=== PATIENT | female | born 1995 | race Caucasian/White ===

== ENCOUNTER 2022-10-01 23:10 | Emergency (ER) | payer BC, SELFPAY ==
[2022-10-01 23:25] VITALS: BP 113/79; PULSE 74; RESP 20; TEMP 37; O2SAT 98
[2022-10-02 02:38] VITALS: BP 100/71; PULSE 73
[2022-10-02 02:39] VITALS: BP 111/82; PULSE 77
[2022-10-02 02:40] VITALS: BP 108/90; PULSE 103
--- NOTE | 2022-10-02 02:43 | ECG_ITS ---
Measurements Intervals [place] Rate: 58 P: 64 MA: 142 QRS: 73 QRSD: 94 T: 52 QT: 417 QTc: 412 Interpretive Statements SINUS BRADYCARDIA EARLY REPOLARIZATION ABNORMALITY, CONSIDER NORMAL VARIANT NORMAL ECG NO PREVIOUS ECG AVAILABLE FOR COMPARISON Electronically Signed On 10-03-2022 16:12:30 CDT by Manuelito Good M.D.
[2022-10-02] MEDS: SODIUM CHLORIDE 0.9% IV 1,000 ML 999 ML IV CONT (02:58)
[2022-10-02 03:05] LABS: Basophils Absolute Auto 0.1 K/mm3 (0.0-0.1); Basophils Percent Auto 2.2 % (0.2-1.2); Eosinophils Absolute Auto 0.1 K/mm3 (0-0.3); Eosinophils Percent Auto 1.2 % (0-4.4); Hematocrit 40.4 % (37.0-47.0); Immature Granulocyte Absolute 0.01 K/mm3 (0.00-0.031); Immature Granulocyte Percent A 0.2 % (0-0.5); Lymphocytes Absolute Auto 2.61 K/mm3 (0.9-3.2); Lymphocytes Percent Auto 43.4 % (18.3-44.2); Mean Corpuscular HGB Conc 34.7 g/dl (32-36); Mean Corpuscular Hemoglobin 30.2 pg (26-34); Mean Corpuscular Volume 87.3 fl (80-100); Mean Platelet Volume 9.3 fl (7.4-10.4); Monocytes Absolute Auto 0.5 K/mm3 (0.1-0.6); Neutrophils Absolute Auto 2.7 K/mm3 (1.3-6.7); Platelet Count Result 276 k/mm3 (150-375); Red Blood Count 4.63 M/mm3 (4.2-5.4); Red Cell Distribution Width 12.6 % (11.5-14.5)
[2022-10-02 03:06] LABS: Appearance Urine Clear (Clear); Bilirubin Urine Negative (Negative); Blood Urine Negative (Negative); Color Urine Yellow (Yellow); Glucose Urine UA Negative (Negative); Ketones Urine Negative (Negative); Leukocyte Esterase Ur Negative LEU/UL (Negative); Nitrate Urine Negative (Negative); Protein Urine Negative (Negative); Specific Grav Ur 1.003 (1.001-1.035); Urobilinogen Urine 0.2 mg/dL (<2.0)
[2022-10-02 03:09] LABS: Add Urine Microscopic? NO
[2022-10-02 03:17] LABS: Alanine Aminotransferase 17 U/L (6-35); Albumin Level 4.8 g/dL (3.5-5.1); Alkaline Phosphatase 55 U/L (38-126); Anion Gap 8 mmol/L (8-16); Aspartate Amino Transferase 25 U/L (14-36); Bilirubin,Total 0.5 mg/dL (0.2-1.3); Blood Urea Nitrogen 5 mg/dL (7-17); Calcium 9.2 mg/dL (8.4-10.2); Carbon Dioxide 31 mmol/L (22-30); Chloride 105 mmol/L (98-107); Estimated CRCL calculation 116 ml/min; Estimated Glomerular Filt Rate > 60; Glucose 93 mg/dL (65-110); Magnesium 1.9 mg/dL (1.6-2.3); Potassium 3.7 mmol/L (3.4-5.0); Sodium 144 mmol/L (137-145)
--- NOTE | 2022-10-02 04:05 | ED.GENADULT ---
HPI - General Adult General Chief complaint: Fall Stated complaint: fall Time Seen by Provider: 10/02/22 02:37 History of Present Illness HPI narrative: Patient 26-year-old female who presents the emergency department with chief complaint of head injury. Patient reports that she has had issues before with problems with her oral intake and reports that she has had episodes where she stands up and gets lightheaded. The patient reports this evening she had an episode where she stood up got lightheaded fell to the ground and woke up on the ground. The patient reports that now she just feels a little weak and rundown patient denies chest pain denies shortness of breath denies any injuries. Review of Systems Review of Systems: A 10 system review of systems was completed on the patient and is negative except for what is stated in the HPI. Nursing and ancillary documentation was reviewed. Exam Narrative: GENERAL: Well-appearing, well-nourished, and in no acute distress. HEAD: Normocephalic, atraumatic. EYES: PERRLA and EOMI. ENT: Nares clear, no rhinorrhea or epistaxis. Mucous membranes moist. NECK: Supple. CHEST: Clear to auscultation. No respiratory distress. HEART: Regular rate and rhythm. No murmur heard. Normal peripheral pulses. ABDOMEN: Soft, nontender, nondistended, normal active bowel sounds. EXTREMITIES: Normal range of motion. No edema. SKIN: Warm, dry, no rash. NEURO: No focal deficits. Alert and oriented x3. PSYCH: Normal mood and affect. Course Course Emergency Course: Differential diagnosis includes orthostatic hypotension, POTS syndrome, dysrhythmia, dehydration, electrolyte abnormality Patient is currently GCS 15 alert oriented and showing no signs of altered mental status. At this time CT head does not required EKG shows sinus bradycardia rate of [address] elevation or ST depression. Laboratory studies were obtained which showed a CBC with a white count of 6 hemoglobin of 14 and platelet count was 276. CMP showed a BUN of 5 and a creatinine 0.6 potassium was 3.7 LFTs are within normal limits magnesium was 1.9. Urinalysis was negative Patient received a liter of normal saline and is feeling better at this time. Vital Signs Vital signs: Vital Signs Temperature 37.0 C 10/01/22 23:25 Pulse Rate 74 10/01/22 23:25 Respiratory Rate 20 10/01/22 23:25 Blood Pressure 113/79 10/01/22 23:25 Pulse Oximetry 98 10/01/22 23:25 Oxygen Delivery Room Air 10/01/22 23:25 Temperature 37.0 C 10/01/22 23:25 Pulse Rate 103 H 10/02/22 02:40 Respiratory Rate 20 10/01/22 23:25 Blood Pressure 108/90 10/02/22 02:40 Pulse Oximetry 98 10/01/22 23:25 Oxygen Delivery Room Air 10/01/22 23:25 Medical Decision Making Vital Signs Vital Signs: Vital Signs Temperature 37.0 C 10/01/22 23:25 Pulse Rate 74 10/01/22 23:25 Respiratory Rate 20 10/01/22 23:25 Blood Pressure 113/79 10/01/22 23:25 Pulse Oximetry 98 10/01/22 23:25 Oxygen Delivery Room Air 10/01/22 23:25 Temperature 37.0 C 10/01/22 23:25 Pulse Rate 103 H 10/02/22 02:40 Respiratory Rate 20 10/01/22 23:25 Blood Pressure 108/90 10/02/22 02:40 Pulse Oximetry 98 10/01/22 23:25 Oxygen Delivery Room Air 10/01/22 23:25 Lab Data 10/02/22 02:59 10/02/22 02:59 Labs: Lab Results 10/02/22 10/02/22 10/02/22 Range/Units 02:59 02:59 02:59 WBC 6.0 (4.5-10.0) K/mm3 RBC 4.63 (4.2-5.4) M/mm3 Hgb 14.0 (12.0-15.0) g/dL Hct 40.4 (37.0-47.0) % MCV 87.3 (80-100) fl MCH 30.2 (26-34) pg MCHC 34.7 (32-36) g/dl RDW 12.6 (11.5-14.5) % Plt Count 276 (150-375) k/mm3 MPV 9.3 (7.4-10.4) fl Immature Gran % (Auto) 0.2 (0-0.5) % Neut % (Auto) 45.0 L (45.5-73.1) % Lymph % (Auto) 43.4 (18.3-44.2) % [place] % (Auto) 8.0 (2.6-8.5) % Eos % (Auto) 1.2 (0-4.4) % Baso % (Auto) 2.2 H (0.2-1.2) % Lymph # (Auto
[2022-10-02 04:14] VITALS: BP 99/59; PULSE 77; RESP 18; TEMP 36.6; O2SAT 99
== END 2022-10-02 04:15 | disposition home or self-care (01) ==
PROVIDERS: Emergency Provider Emergency Medicine; PCP Nurse Practitioner
DX: I95.1 Orthostatic hypotension (principal); S09.90XA Unspecified injury of head, initial encounter; R00.1 Bradycardia, unspecified; W18.39XA Other fall on same level, initial encounter
CPT/HCPCS: 36415; 80053; 81003; 81025; 83735; 85025; 93005; 96360; 99283; J7030

== ENCOUNTER → 2022-11-14 08:29 | Outpatient (CLI) | payer BC, SELFPAY ==
--- NOTE | ~2022-11-14 | XR_ITS ---
Lumbosacral Spine: AP and lateral views Clinical History: Pain Findings: The normal lordotic curve is maintained. The vertebral bodies and posterior elements are i ntact. The intervertebral disc spaces are preserved. The sacroiliac joints are normally outlined. Impression: No significant abnormality. Reviewed, dictated and finalized at [facility]. Impression: No significant abnormality.
== END ==
PROVIDERS: PCP Nurse Practitioner; Visit Provider Nurse Practitioner
DX: M54.50 Low back pain, unspecified (principal); G89.29 Other chronic pain
CPT/HCPCS: 72100

== ENCOUNTER 2022-11-18 07:47 | Emergency (ER) | payer BC, SELFPAY ==
[2022-11-18] VITALS (20 sets, daily range): BP systolic 80–115; BP diastolic 51–80; PULSE 104–122; RESP 20; TEMP 36.6; O2SAT 87–100
--- NOTE | ~2022-11-18 | US_ITS ---
EXAMINATION: US pelvic complete DATE: 11/18/2022 11:15 INDICATION: Left ovarian cyst. TECHNIQUE: Multiple transabdominal sonographic images of the pelvis were obtained. COMPARISON: CT abdomen and pelvis 11/18/2022 FINDINGS: The uterus measures 8.8 x 5.0 x 3.6 cm. There is no free fluid in the pelvis. The endometrial complex measures 7 mm in thickness. The right ovary measures 2.7 x 1.9 x 1.8 cm. The left ovary measures 5.4 x 4.2 x 4.3 cm. There is a 4.6 cm mass in left ovary that is anechoic, hypoechoic, and hyperechoic w ithout internal vascular flow, likely a hemorrhagic cyst. There is normal vascular flow in the ovarie s. IMPRESSION: 1. 4.6 cm hemorrhagic cyst in left ovary. Reviewed, dictated and finalized at location [facility].
--- NOTE | ~2022-11-18 | CT_ITS ---
CT of the Abdomen and Pelvis: Indication: Abdominal pain Technique: 2.5 mm axial scans were obtained through the abdomen and pelvis following intravenous adm inistration of 100 cc of Omnipaque 350. Dose reduction technique was used on this scan by utilizing a utomated exposure control and iterative reconstruction technique. The dose-length product (DLP) was 3 10.16 mGy-cm. Findings: Scans through the lung bases are unremarkable. The liver, spleen, pancreas, gallbladder, adrenals and kidneys are within normal limits. No evidence of aortic aneurysm. No lymphadenopathy. No bowel obstruction or bowel wall thickening. Moderate amount of stool is present, suggestive of con stipation. Images through the pelvis were performed. Urinary bladder is unremarkable. 3.7 cm left ovarian cyst p resent. There is trace ascites in the pelvis. Impression: 3.7 cm left ovarian cyst. Consider ultrasound to assess for torsion as indicated. Trace ascites, nonspecific. Moderate stool. Correlate for constipation. Reviewed, dictated and finalized at location . Impression: 3.7 cm left ovarian cyst. Consider ultrasound to assess for torsion as indicate d. Trace ascites, nonspecific. Moderate stool. Correlate for constipation.
[2022-11-18] MEDS: SODIUM CHLORIDE 0.9% IV 1,000 ML 999 ML IV CONT ×2 (08:23→09:28)
[2022-11-18] MEDS: ONDANSETRON INJ 4 MG/2 ML VIAL IV PUSH (08:23)
[2022-11-18 08:30] LABS: Basophils Absolute Auto 0.1 K/mm3 (0.0-0.1); Basophils Percent Auto 0.5 % (0.2-1.2); Eosinophils Absolute Auto 0.1 K/mm3 (0-0.3); Eosinophils Percent Auto 0.7 % (0-4.4); Hematocrit 42.5 % (37.0-47.0); Hemoglobin 15.7 g/dL (12.0-15.0); Immature Granulocyte Absolute 0.05 K/mm3 (0.00-0.031); Immature Granulocyte Percent A 0.4 % (0-0.5); Lymphocytes Absolute Auto 0.36 K/mm3 (0.9-3.2); Lymphocytes Percent Auto 2.8 % (18.3-44.2); Mean Corpuscular HGB Conc 36.9 g/dl (32-36); Mean Corpuscular Hemoglobin 30.8 pg (26-34); Mean Corpuscular Volume 83.3 fl (80-100); Mean Platelet Volume 10.4 fl (7.4-10.4); Monocytes Absolute Auto 0.7 K/mm3 (0.1-0.6); Monocytes Percent Auto 5.3 % (2.6-8.5); Neutrophils Absolute Auto 11.7 K/mm3 (1.3-6.7); Neutrophils Percent Auto 90.3 % (45.5-73.1); Platelet Count Result 223 k/mm3 (150-375); Red Cell Distribution Width 12.3 % (11.5-14.5); White Blood Count 12.9 K/mm3 (4.5-10.0)
[2022-11-18 08:34] LABS: Appearance Urine Cloudy (Clear); Bacteria Urine 1+ /hpf; Bilirubin Urine 1+ (Negative); Blood Urine Negative (Negative); Color Urine Dark Yellow (Yellow); Glucose Urine UA Negative (Negative); Ketones Urine 2+ mg/dL (Negative); Leukocyte Esterase Ur Trace LEU/UL (Negative); Nitrate Urine Negative (Negative); Non Pathogenic Casts 0-2; Protein Urine Trace mg/dL (Negative); RBC Urine 0-2 /hpf (0-2); Specific Grav Ur 1.025 (1.001-1.035); Squamous Epithelial Cell Urine Few /hpf (Few); WBC Urine 0-5 /hpf; pH Urine 7.5 (5.0-9.0)
[2022-11-18 08:38] LABS: Add Urine Microscopic? YES
--- NOTE | 2022-11-18 08:38 | ED.NAVMDI ---
HPI - Nausea/Vomiting/Diarrhea General Chief complaint: Nausea/Vomiting/Diarrhea Stated complaint: N/V SINCE MIDNIGHT Time Seen by Provider: 11/18/22 07:56 Source: patient, family () and RN notes reviewed Mode of arrival: ambulatory Limitations: other (patient does not feel well so giving history as well) History of Present Illness HPI Narrative: This is a 26 year old female who presents for evaluation of nausea and vomiting. Her states patient started having nonbilious nausea and vomiting last night around 11 pm. She has had multiple episodes of emesis and he states now it is bilious. She is unable to keep anything down. She feels lightheaded and feels like she is going to vomiting. She reports mild lower abdominal discomfort but reports low back pain as well. She reports having low back pain for while and she has been taking tramadol for this back pain. She denies fever, chills, diarrhea, urinary symptoms. She last ate dinner at 6 pm yesterday. Related Data Allergies Allergy/AdvReac Type Severity Reaction Status Date / Time No Known Allergies Allergy Verified 11/18/22 08:03 Review of Systems Constitutional: Constitutional: Reports weakness ENT: Reports dizziness Cardiovascular: Cardiovascular: Denies syncope, Denies rapid heart rate, Denies irregular heart rhythm, Denies leg edema and Denies dyspnea Respiratory: Respiratory: Denies chest congestion, Denies hemoptysis, Denies excessive phlegm production and Denies dyspnea Gastrointestinal: Gastrointestinal: Denies abdominal pain, Denies hematochezia, Denies diarrhea, Reports nausea and Reports vomiting Genitourinary: Genitourinary: Denies hematuria and Denies dysuria Musculoskeletal: Musculoskeletal: Reports back pain, Denies joint swelling, Denies loss of height and Denies muscle weakness Neurologic: Denies syncope, Denies focal weakness and Denies weakness PMFSH Past Medical History Medical History (Updated 11/18/22 @ 11:50 by Kenia Claire MD) Patient denies medical problems Surgical History Surgical History (Updated 11/18/22 @ 08:43 by Kenia Claire MD) H/O wrist surgery Social History Social History (Updated 11/18/22 @ 08:43 by Kenia Claire MD) Smoking status: Never smoker Exam Const: General: ill appearing; No diaphoretic Nutritional Appearance: thin Orientation/consciousness: patient oriented x3 HENMT: Head: normal to inspection Face and sinus: normal facial exam and sinuses nontender Mouth: Yes dry mucous membranes Eyes: EOM: EOMs intact bilaterally Chest: Chest palpation & inspection: normal inspection of the chest Resp: Auscultation: clear to auscultation bilaterally Other: patient hyperventilating, able to speak in complete sentence Cardio: Rate: tachycardic Rhythm: regular rhythm Heart sounds: no murmurs GI: GI Palp: Yes Soft to palpation, No Tenderness to palpation present (GI), No Guarding due to palpation present (GI) and No Rigid due to palpation Auscultation: normal bowel sounds : General: Yes no CVA tenderness Back/Spine/Pelvis: Back: no CVA tenderness Skin: General skin exam: normal color Rashes: no rashes Wounds: no wounds Neuro: General: patient oriented x3, moves all extremities and CN's II-XI intact bilaterally Extrem: General: normal to inspection Psych: Mental Status: mental status grossly normal Affect: normal affect Attitude: cooperative Course Reevaluation(s) Reevaluation #1: PAtient reports that her nausea has resolved but she is having left lower back pain still . I discussed CT showing left ovarian cyst so will order US and pain medications. Date: 11/18/22 Time: 10:22 Reevaluation #2: Patient states her pain is much improved. I discussed US showing left hemorrhagic cyst at likely cause of her pain. She understands she will need to follow up with PCP Date: 11/18/22 Time: 11:48 Vital Signs Vital signs: Vital Signs Temperature 97.8
[2022-11-18 08:44] LABS: Alanine Aminotransferase 24 U/L (6-35); Albumin Level 5.2 g/dL (3.5-5.1); Alkaline Phosphatase 68 U/L (38-126); Anion Gap 12 mmol/L (8-16); Aspartate Amino Transferase 34 U/L (14-36); Bilirubin,Total 1.3 mg/dL (0.2-1.3); Blood Urea Nitrogen 16 mg/dL (7-17); Calcium 9.5 mg/dL (8.4-10.2); Carbon Dioxide 20 mmol/L (22-30); Chloride 105 mmol/L (98-107); Estimated CRCL calculation 101 ml/min; Estimated Glomerular Filt Rate > 60; Glucose 148 mg/dL (65-110); Lipase 81 U/L (23-300); Magnesium 1.9 mg/dL (1.6-2.3); Potassium 3.6 mmol/L (3.4-5.0); Sodium 137 mmol/L (137-145)
[2022-11-18] MEDS: MORPHINE SULFATE (*CRX) 4 MG/ML INJ IV PUSH (11:14)
[2022-11-18] MEDS: KETOROLAC 30 MG/ML VIAL (*BKC) IV PUSH (11:15)
== END 2022-11-18 12:32 | disposition home or self-care (01) ==
PROVIDERS: Emergency Provider General Practice; PCP Nurse Practitioner
DX: N83.202 Unspecified ovarian cyst, left side (principal); R11.2 Nausea with vomiting, unspecified
CPT/HCPCS: 36415; 74177; 76856; 80053; 81001; 81025; 83690; 83735; 85025; 96361; 96374; 96375; 99284; J1885; J2270; J2405; J7030; Q9967

== ENCOUNTER 2023-05-17 01:34 | Emergency (ER) | payer BC, SELFPAY ==
[2023-05-17 01:37] VITALS: BP 113/71; PULSE 105; RESP 20; TEMP 36.6; O2SAT 100
[2023-05-17 01:55] LABS: Basophils Absolute Auto 0.1 K/mm3 (0.0-0.1); Basophils Percent Auto 0.4 % (0.2-1.2); Eosinophils Absolute Auto 0.1 K/mm3 (0-0.3); Eosinophils Percent Auto 0.8 % (0-4.4); Hemoglobin 14.3 g/dL (12.0-15.0); Immature Granulocyte Absolute 0.03 K/mm3 (0.00-0.031); Immature Granulocyte Percent A 0.2 % (0-0.5); Lymphocytes Absolute Auto 0.63 K/mm3 (0.9-3.2); Lymphocytes Percent Auto 4.1 % (18.3-44.2); Mean Corpuscular HGB Conc 34.9 g/dl (32-36); Mean Corpuscular Volume 86.1 fl (80-100); Mean Platelet Volume 9.7 fl (7.4-10.4); Monocytes Absolute Auto 0.8 K/mm3 (0.1-0.6); Monocytes Percent Auto 5.5 % (2.6-8.5); Neutrophils Absolute Auto 13.6 K/mm3 (1.3-6.7); Platelet Count Result 243 k/mm3 (150-375); Red Blood Count 4.76 M/mm3 (4.2-5.4); Red Cell Distribution Width 13.2 % (11.5-14.5); White Blood Count 15.3 K/mm3 (4.5-10.0)
[2023-05-17 02:18] LABS: Alanine Aminotransferase 17 U/L (6-35); Albumin Level 4.8 g/dL (3.5-5.1); Alkaline Phosphatase 48 U/L (38-126); Anion Gap 13 mmol/L (8-16); Aspartate Amino Transferase 28 U/L (14-36); Bilirubin,Total 0.8 mg/dL (0.2-1.3); Blood Urea Nitrogen 14 mg/dL (7-17); Calcium 9.4 mg/dL (8.4-10.2); Carbon Dioxide 20 mmol/L (22-30); Chloride 102 mmol/L (98-107); Estimated CRCL calculation 165 ml/min; Estimated Glomerular Filt Rate > 60; Glucose 124 mg/dL (65-110); Lipase 93 U/L (23-300); Potassium 3.7 mmol/L (3.4-5.0); Sodium 135 mmol/L (137-145)
--- NOTE | 2023-05-17 02:34 | PC.NURSE ---
Pt approached triage desk and states she is going to another hospital to be seen. States you can skip me . Pt ambulated out of ED with steady gait in no obvious distress.
== END 2023-05-17 06:33 | disposition left against medical advice (07) ==
LOC: ANHED 02:39
PROVIDERS: Emergency Provider Emergency Medicine; PCP Nurse Practitioner
DX: R11.2 Nausea with vomiting, unspecified (principal)
CPT/HCPCS: 36415; 80053; 83690; 85025; 99199